=== PATIENT | female | born 1960 | race Caucasian/White ===

== ENCOUNTER 2021-01-25 14:24 | Emergency (ER) | payer BC ==
[~2021-01-25] VITALS: Ht 165.1 cm; Wt 120.7 kg
[2021-01-25] MEDS ORDERED: ELIQUIS5 MG PO (15:02)
[2021-01-25] MEDS ORDERED: PROAIR HFA8.5 GM INH (15:02)
[2021-01-25] MEDS ORDERED: C-1000 WITH R1000 MG PO (15:02)
[2021-01-25] MEDS ORDERED: AMOXICILLIN 50500 MG PO (15:02)
[2021-01-25] MEDS ORDERED: BREO ELLIPTA 21 EACH INH (15:03)
[2021-01-25] MEDS ORDERED: LIPITOR40 MG PO (15:03)
[2021-01-25] MEDS ORDERED: ZPAK PO (15:03)
[2021-01-25] MEDS ORDERED: COREG12.5 MG PO (15:03)
[2021-01-25] MEDS ORDERED: D3-200050 MCG PO (15:04)
[2021-01-25] MEDS ORDERED: DULCOLAX STOOL100 M1 PO (15:04)
[2021-01-25] MEDS ORDERED: DICLOFENAC SODI75 MG PO (15:04)
[2021-01-25] MEDS ORDERED: IPRATROPIU0.2 MG/1 M INH (15:05)
[2021-01-25] MEDS ORDERED: TAMBOCOR 100 M100 M1 PO (15:05)
[2021-01-25] MEDS ORDERED: FLONASE 0.05%50 MCG NARES (15:05)
[2021-01-25] MEDS ORDERED: SINGULAIR 5 MG C5 M1 PO (15:06)
[2021-01-25] MEDS ORDERED: OMEGA-3 FISH1200 MG PO (15:06)
[2021-01-25] MEDS ORDERED: LISINOPRIL5 MG PO (15:06)
[2021-01-25] MEDS ORDERED: LEVOTHYROXINE150 MC1 PO (15:06)
[2021-01-25] MEDS ORDERED: PROTONIX 20 MG20 MG PO (15:06)
[2021-01-25] MEDS ORDERED: TRAMADOL 50 MG50 MG PO (15:07)
[2021-01-25] MEDS ORDERED: SPIRONOLACTONE50 MG PO (15:07)
[2021-01-25] MEDS ORDERED: PROTONIX40 M2 PO (15:07)
[2021-01-25] MEDS ORDERED: INTERMEZZO3.5 MG PO (15:08)
[2021-01-25] MEDS ORDERED: NORCO5 PO (15:10)
--- NOTE | 2021-01-25 19:14 | EKG ---
[place] [address] ELECTROCARDIOGRAM REPORT Name: MOISÉS EDWARDS Room: [facility]#: [id number] Admission: 01/25/21 Attend Phys: Discharge: Date of : 60 Date of Service: 01/25/211829 Report #: [id number] THIS REPORT FOR: //name// [facility] ED Test Date: 2021-01-25 Test Time: 18:30:33 Pat Name: MOISÉS EDWARDS Department: Room: Gender: [employer] Room Attendant: : 1960 Requested By: Lee Macias Order Number: [id number] MD: Javier Turcios Measurements Intervals [place] Rate: 65 P: 41 [place]: 167 QRS: -14 QRSD: 110 T: 22 QT: 431 QTc: 449 Interpretive Statements Sinus rhythm Borderline T abnormalities, anterior leads No previous ECG available for comparison Electronically Signed On 01-25-2021 19:14:26 REIMBURSEMENT SPECIALIST by Javier Turcios [email or web address] <ELECTRONICALLY SIGNED> By: Javier Turcios MD, [facility] 01/25/211913 29 29 Javier Turcios MD, FACC /EPI
[2021-01-25 19:41] LABS: ABSOLUTE NEUTROPHILS 3.8 thou/uL (1.6-8.1); EOSINOPHILS 0.1 %; MPV 8.4 fl. (7.2-11.1); NUCLEATED RBCS 0 /100WBC; PLATELET COUNT* 251 thou/uL (150-400)
[2021-01-25 19:43] LABS: ABSOLUTE LYMPHOCYTES 1.3 thou/uL (0.8-5.3); ABSOLUTE MONOCYTES 0.6 thou/uL (0.0-1.2); BASOPHILS 0.6 %; HEMATOCRIT 42.2 % (37.0-47.0); LYMPHOCYTES 22.3 %; MCH 30.2 pg (26.0-34.0); MCHC 33.1 g/dL (28.0-37.0); MCV 91.1 fL (80.0-100.0); MONOCYTES 9.8 %; POLYS 67.2 %; RBC 4.63 mil/uL (4.20-5.00); RDW-CV 14.8 % (10.5-14.5); WBC 5.7 thou/uL (4.0-11.0)
[2021-01-25 19:49] LABS: ANION GAP 12 mmol/L (7-16); BUN 21 mg/dL (7-18); CHLORIDE 103 mmol/L (98-107); CO2 22 mmol/L (21-32); CREATININE 0.9 mg/dL (0.6-1.3); GLUCOSE 93 mg/dL (70-99); POTASSIUM 3.6 mmol/L (3.5-5.1); SODIUM 137 mmol/L (136-145)
[2021-01-25 19:53] LABS: ALKALINE PHOSPHATASE 69 U/L (46-116); LIPASE 235 U/L (73-393); SGOT 17 U/L (15-37); SGPT 27 U/L (30-65); TOTAL BILIRUBIN 0.5 mg/dL (<0.1-1.0); TOTAL PROTEIN 7.7 g/dL (6.4-8.2)
[2021-01-25 19:55] LABS: ALBUMIN < 2.0 g/dL (3.4-5.0)
[2021-01-25 19:57] LABS: CALCIUM < 5.0 mg/dL (8.5-10.1)
[2021-01-25] MEDS ORDERED: DOXYCYCLINE 10100 MG PO (20:13)
[2021-01-25] MEDS ORDERED: ONDANSETRON HCL4 M2 PO (20:13)
[2021-01-25] MEDS ORDERED: APAP W/CODEINE1 TA2 PO (20:13)
[2021-01-25 20:26] VITALS: BP 152/92
== END 2021-01-25 20:26 | disposition home or self-care (01) ==
LOC: M.ERS 14:24
PROVIDERS: Physician Assistant
DX: U07.1 COVID-19 (principal); E83.51 Hypocalcemia; R11.10 Vomiting, unspecified; I10 Essential (primary) hypertension; Z79.899 Other long term (current) drug therapy; Z98.890 Other specified postprocedural states; Z91.02 Food additives allergy status